=== PATIENT | male | born 1935 | race Caucasian/White ===

== ENCOUNTER 2024-09-03 11:05 | Day surgery (SDC) | payer OTHER ==
[~2024-09-03] VITALS: Ht 175.3 cm; Wt 117.0 kg
[2024-09-03] VITALS (12 sets, daily range): BP systolic 111–168; BP diastolic 51–96
[~2024-09-03 11:05] MED LIST: ALBU90OI INH; Coumadin5 MG PO; FEXO180; IBUP200; MECL25 PO; OMEP20ER; PANT40 PO; PRED10 PO; Prinivil10 MG PO; TAMS.4ER PO; TRAM50 PO; WARF2.5; WARF2.5 PO
[2024-09-03] MEDS ORDERED: Ropivacaine 0.5% HCl/Pf 123.125 MG,EPINEPHrine HCL 0.25 MG,Ketorolac Tromethamine 15 MG... INFIL SCH (12:10)
[2024-09-03] MEDS ORDERED: Chlorhexidine Mouth Care 15 ML UDC MT SCH (12:10)
[2024-09-03] MEDS ORDERED: Acetaminophen 500 MG Tab PO SCH ×3 (12:10→16:00)
[2024-09-03] MEDS ORDERED: OxyCODONE HCL 10 MG TABCR PO SCH (12:10)
[2024-09-03] MEDS ORDERED: Tranexamic Acid 100 ML IV SCH (12:10)
[2024-09-03] MEDS ORDERED: CeFAZolin Sodium 2,000 MG in NS 100 ML IV SCH ×2 (12:10→22:00)
[2024-09-03] MEDS ORDERED: Lactated Ringer's 1,000 ML IV SCH ×2 (12:10→13:35)
--- NOTE | 2024-09-03 12:58 | NUR ---
History, Chart, Medications and Allergies reviewed before start of procedure. Patient confirms NPO status and agrees with scheduled surgery. Pre-Op teaching done. Pt verbalizes understanding. Lungs clear T/O to Auscultation.
[2024-09-03] MEDS ORDERED: Mupirocin Calcium Oint 1 GM ONE (13:00)
[2024-09-03] MEDS ORDERED: Magnesium Hydroxide Conc 10 ML UDC PO PRN (13:35)
[2024-09-03] MEDS ORDERED: HYDROmorphone HCl/Pf 1MG SYR IV PRN (13:35)
[2024-09-03] MEDS ORDERED: Bisacodyl 10 MG Supp PR PRN (13:40)
[2024-09-03] MEDS ORDERED: DiphenhydrAMINE HCL 25 MG Cap PO PRN (13:40)
[2024-09-03] MEDS ORDERED: Metoclopramide HCl 5MG / ML 2ML Vial IV PRN (13:40)
[2024-09-03] MEDS ORDERED: Ondansetron HCl 2 MG / ML 2ML Vial IV PRN (13:40)
[2024-09-03] MEDS ORDERED: OxyCODONE HCL 5 MG TAB PO PRN ×2 (13:45)
[2024-09-03] MEDS ORDERED: Promethazine HCl 25 MG Tab PO PRN (13:45)
[2024-09-03] MEDS ORDERED: propofoL 100 ML IV ONE (15:56)
[2024-09-03] MEDS ORDERED: FLU VACC TS2024-25(6MOS UP)/PF 45 MCG/0.5 ML SYRINGE IM ONE (16:00)
[2024-09-03] MEDS ORDERED: Ketorolac Tromethamine 15mg Vial IV SCH (18:00)
[2024-09-03] MEDS ORDERED: Ketorolac Tromethamine 30mg Vial ONE (18:23)
[2024-09-03] MEDS ORDERED: Docusate Sodium 100 MG Cap PO SCH (21:00)
[2024-09-03] MEDS ORDERED: Mupirocin 2% Ointment 22 GM TOP SCH (21:00)
--- NOTE | 2024-09-03 23:00 | NUR ---
ARRIVAL PT ARRIVED BACK FROM PACU AT SHIFT CHANGE. VSS, A/OX4, REPORTS N/T FROM SPINAL
[2024-09-04] MEDS ORDERED: Acetaminophen 500 MG Tab PO SCH
[2024-09-04 03:17] VITALS: BP 163/82
--- NOTE | 2024-09-04 04:13 | NUR ---
SHIFT SUMMARY POD1 R TKA. AQUACEL REMAINS C/D/I. SENSATION AND CIRCULATION REMAINS INTACT. VSS. PT GOT LITTLE TO NO SLEEP T/O THE NIGHT. PT WOKE UP THIS AM VERY CONFUSED, SITTING AT THE BEDSIDE, UNDRESSED, AND LOOKING FOR HIS CPAP & . IT TOOK ABOUT 5 MINUTES TO REORIENT THE PATIENT AND GET HIM BACK INTO BED. MINIMAL URINE OUTPUT NOTED, IVF RUNNING T/O THE NIGHT. BLADDER SCAN SHOWS 50 MLS. PT TOLLERATING PO INTAKE W/O N/V. PAIN MANAGED W/SCHEDULED MEDICATIONS AND SOME PRN'S. PLAN FOR PHYSICAL THERAPY TODAY AND D/C HOME.
[2024-09-04 05:57] LABS: BASOPHILS ABSOLUTE AUTO 0.05 K/mm3 (0.00-0.23); BASOPHILS PERCENT AUTO 1 % (0-2); EOSINOPHILS PERCENT AUTO 2 % (0-6); Hematocrit 38.8 % (37.0-53.0); Hemoglobin 13.1 g/dL (13.5-17.5); IMMATURE GRAN ABSOLUTE AUTO 0.03 K/mm3 (0.00-0.10); IMMATURE GRAN PERCENT AUTO 0 % (0-1); LYMPHOCYTES ABSOLUTE AUTO 1.14 K/mm3 (0.84-5.20); LYMPHOCYTES PERCENT AUTO 13 % (21-46); MONOCYTES ABSOLUTE AUTO 0.95 K/mm3 (0.16-1.47); MONOCYTES PERCENT AUTO 11 % (4-13); Mean Corpuscular HGB 31.4 pg (26.0-34.0); Mean Corpuscular HGB Conc 33.8 g/dL (31.5-36.5); Mean Corpuscular Volume 93 fL (80-100); Mean Platelet Volume 10.2 fL (9.1-12.4); NEUTROPHILS ABSOLUTE AUTO 6.65 K/mm3 (1.96-9.15); NEUTROPHILS PERCENT AUTO 74 % (41-73); Platelet Count 233 K/mm3 (150-400); RDW Coefficient Variation 13.1 % (11.7-14.2); RDW Standard Deviation 44.6 fL (35.1-46.3); Red Blood Cell Count 4.17 M/mm3 (4.30-5.90); White Blood Cell Count 9.02 K/mm3 (4.00-11.30)
[2024-09-04 06:17] LABS: Bun/Creatinine Ratio 19.6 (12.0-20.0); Calcium, Blood 8.5 mg/dL (8.5-10.1); Creatinine, Blood 0.92 mg/dL (0.60-1.20); Magnesium, Blood 2.1 mg/dL (1.6-2.4); Potassium, Blood 3.9 mmol/L (3.5-5.5)
[2024-09-04 07:51] VITALS: BP 159/78
[2024-09-04] MEDS ORDERED: OXYC5 PO (08:30)
[2024-09-04] MEDS ORDERED: ACET500 PO (08:30)
[2024-09-04] MEDS ORDERED: SULTRIDS PO (08:31)
[2024-09-04] MEDS ORDERED: ASPI81CH PO (08:31)
[2024-09-04] MEDS ORDERED: Aspirin 81 MG Chew PO SCH (09:00)
[2024-09-04] MEDS ORDERED: Tamsulosin HCl 0.4 MG Cap PO SCH (09:00)
[2024-09-04 13:32] VITALS: BP 102/59
--- NOTE | 2024-09-04 13:45 | NUR ---
DISCHARGE NOTE PT AMBULATING 1 ASST W/ FWW AND GB. DRESSING C/D/I, PT SENT HOME W/ AQUACEL DRESSINGS FOR CHANGES. CAP REFILL IN R TOES 2 SECS, PT ABLE TO WIGGLE TOES, DENIES N/T IN BLE. PAIN TOLERABLE W/ SCHEDULED AND PRN PAIN MEDS. COPY OF DC INSTRUCTIONS SENT HOME W/ PT AND SPOUSE. VSS. PT DC'D VIA WC TO PRIVATE RIDE HOME IN STABLE CONDITION W/ BELONGINGS.
== END 2024-09-04 13:47 | disposition home or self-care (01) ==
LOC: ORSCMMR 11:05 → ORD 13:15 → ORSCMMR 13:15 → SURS 18:52 → ORSCMMR 09-04 13:47
PROVIDERS: Orthopaedic Surgery
PROC: 0SRC0JA Replacement of Right Knee Joint with Synthetic Substitute, Uncemented, Open Approach (ICD-10-PCS; principal; 2024-09-03 16:00)
DX: M17.11 Unilateral primary osteoarthritis, right knee (principal); G47.33 Obstructive sleep apnea (adult) (pediatric); E66.01 Morbid (severe) obesity due to excess calories; Z68.38 Body mass index [BMI] 38.0-38.9, adult; N40.0 Benign prostatic hyperplasia without lower urinary tract symptoms; Z79.899 Other long term (current) drug therapy
CPT/HCPCS: 36415; 73560-RT; 80048; 83735; 85025; 94660; 94762; 97110; 97116; 97162; A9270; J0171; J0690; J0735; J1885; J2704; J2795; J7120